=== PATIENT | female | born 1975 | race Two or more races ===

== ENCOUNTER 2023-02-26 13:53 | Inpatient (IN) | payer MEDICAID ==
[~2023-02-26] VITALS: Ht 157.5 cm; Wt 74.8 kg
[2023-02-26] MEDS ORDERED: ACETAMINOPHEN 325 MG TABLET ONE (17:54)
[2023-02-26] MEDS ORDERED: ACETAMINOPHEN 325 MG TABLET PO ONE (18:00)
[2023-02-26 18:39] LABS: BASOPHILS % (AUTO) 0.7 % (0.0-2.0); EOSINOPHILS # (AUTO) 0.1 K/uL (0.0-0.7); EOSINOPHILS % (AUTO) 0.9 % (0.0-6.0); HEMATOCRIT 30 % (33-45); HEMOGLOBIN 9.7 g/dL (11.5-14.8); LYMPHOCYTES # (AUTO) 2.1 K/uL (0.8-4.8); LYMPHOCYTES % (AUTO) 38.2 % (20.0-44.0); MEAN CORPUSCULAR HEMOGLOBIN 25 PG (26.0-33.0); MEAN CORPUSCULAR HGB CONC 32 g/dl (31.0-36.0); MEAN CORPUSCULAR VOLUME 77 fL (82-100); MONOCYTES # (AUTO) 0.5 K/uL (0.1-1.30); MONOCYTES % (AUTO) 8.8 % (2.0-12.0); NEUTROPHILS # (AUTO) 2.8 K/uL (1.8-8.9); NEUTROPHILS % (AUTO) 51.4 % (43.0-81.0); PLATELET COUNT (AUTO) 362 K/uL (150-450); RED BLOOD CELL COUNT(AUTO) 3.94 MIL/uL (4.0-5.2); RED CELL DISTRIBUTION WIDTH 17.4 % (11.5-15.0); WHITE BLOOD COUNT (AUTO) 5.5 K/uL (4.3-11.0)
[2023-02-26 18:49] LABS: CALCIUM, SERUM 9.4 mg/dL (8.5-10.1); CREATININE 0.6 mg/dL (0.6-1.3); POTASSIUM 3.8 mmol/L (3.5-5.1)
[2023-02-26] MEDS ORDERED: VANCOMYCIN 1 GM in IV D5W 250 ML IV ONE (20:30)
[2023-02-26] MEDS ORDERED: PIPERACILLIN /TAZOBACTAM 3.375 G in IV D5W 50 ML IV ONE (20:30)
[2023-02-26] MEDS ORDERED: IV NS 0.9% 1,000 ML IV ONE (20:30)
[2023-02-26] MEDS ORDERED: PIPERACI/TAZO 3.375GM/D5W 50ML PB IV ONE (20:58)
[2023-02-26] MEDS ORDERED: VANCOMYCIN 1 GM /D5W 250 ML PB IV ONE (21:39)
[2023-02-26] MEDS ORDERED: ONDANSETRON HCL/PF 4 MG/2 ML VIAL IVP PRN (22:00)
[2023-02-26] MEDS ORDERED: HYDROCODONE/APAP 5/325MG TABLET PO PRN (22:00)
[2023-02-26] MEDS: ENOXAPARIN SODIUM 40 MG/0.4 ML DISP.SYRIN SQ SCH (22:35)
[2023-02-26 22:57] LABS: IRON, SERUM 16 ug/dl (50-175); TOTAL IRON BINDING CAPACITY 344 ug/dl (250-450)
[2023-02-26 23:09] LABS: FERRITIN 5 ng/mL (8-388)
[2023-02-27] VITALS: BP 120/78; TEMP 97.7; O2SAT 98
[2023-02-27] MEDS ORDERED: ZOSYN IVPB 3.375 G in IV D5W 50ml IV SCH ×2 (03:00→18:00)
[2023-02-27] MEDS ORDERED: PIPERACI/TAZO 3.375GM/D5W 50ML PB IV ONE (03:26)
[2023-02-27] MEDS: ACETAMINOPHEN 325 MG TABLET PO PRN ×2 (03:47→19:49)
[2023-02-27 06:21] LABS: BASOPHILS % (AUTO) 0.7 % (0.0-2.0); EOSINOPHILS # (AUTO) 0.1 K/uL (0.0-0.7); EOSINOPHILS % (AUTO) 1.4 % (0.0-6.0); HEMATOCRIT 28 % (33-45); HEMOGLOBIN 9.2 g/dL (11.5-14.8); LYMPHOCYTES # (AUTO) 1.7 K/uL (0.8-4.8); LYMPHOCYTES % (AUTO) 40.5 % (20.0-44.0); MEAN CORPUSCULAR HEMOGLOBIN 25 PG (26.0-33.0); MEAN CORPUSCULAR HGB CONC 33 g/dl (31.0-36.0); MEAN CORPUSCULAR VOLUME 77 fL (82-100); MONOCYTES # (AUTO) 0.4 K/uL (0.1-1.30); MONOCYTES % (AUTO) 10.6 % (2.0-12.0); NEUTROPHILS # (AUTO) 1.9 K/uL (1.8-8.9); NEUTROPHILS % (AUTO) 46.8 % (43.0-81.0); PLATELET COUNT (AUTO) 323 K/uL (150-450); RED BLOOD CELL COUNT(AUTO) 3.63 MIL/uL (4.0-5.2); RED CELL DISTRIBUTION WIDTH 17.1 % (11.5-15.0); WHITE BLOOD COUNT (AUTO) 4.1 K/uL (4.3-11.0)
[2023-02-27] MEDS ORDERED: VANCOMYCIN 1 GM in IV D5W 250 ML IV SCH ×2 (06:30→15:00)
[2023-02-27 06:57] LABS: CALCIUM, SERUM 8.8 mg/dL (8.5-10.1); CREATININE 0.6 mg/dL (0.6-1.3); MAGNESIUM 1.9 mg/dL (1.8-2.4); POTASSIUM 3.9 mmol/L (3.5-5.1)
[2023-02-27] MEDS: diphenhydrAMINE HCL 50 MG CAPSULE PO PRN (08:40)
[2023-02-27] MEDS ORDERED: BLOOD SUGAR DIAGNOSTIC 1 EACH STRIP IN SCH (09:00)
[2023-02-27] MEDS ORDERED: INSULIN REGULAR, HUMAN 100 UNIT/ML 3 ML VIAL SQ PRN (09:00)
[2023-02-27] MEDS ORDERED: DEXTROSE 50%-WATER 50 ML DISP.SYRIN IV PRN (09:00)
[2023-02-27] MEDS ORDERED: PIPERACILLIN /TAZOBACTAM 3.375 G in IV D5W 100 ML IV SCH (10:00)
[2023-02-27 14:45] LABS: PREGNANCY TEST URINE QUAL NEGATIVE (NEGATIVE)
[2023-02-27] MEDS: SOD FERRIC GLUC 125 MG in IV NS 0.9% 100 ML IV SCH (17:07)
[2023-02-27] MEDS ORDERED: LIDOCAINE 1% INJ 50 ML MDV IJ ONE (17:30)
[2023-02-27] MEDS ORDERED: CELLULOSE,OXIDIZED 1 EACH EACH MC ONE (18:30)
[2023-02-27 20:00] VITALS: BP 111/66; TEMP 98.2; O2SAT 96
[2023-02-27] MEDS: ENOXAPARIN SODIUM 40 MG/0.4 ML DISP.SYRIN SQ SCH ×2 (21:18→21:26)
[2023-02-27] MEDS: DOXYCYCLINE HYCLATE (100 MG) 100 MG TABLET PO SCH (22:29)
[2023-02-28 08:00] VITALS: BP 115/74; TEMP 97.9; O2SAT 98
[2023-02-28] MEDS: DOXYCYCLINE HYCLATE (100 MG) 100 MG TABLET PO SCH ×2 (11:00→21:30)
[2023-02-28] MEDS: SOD FERRIC GLUC 125 MG in IV NS 0.9% 100 ML IV SCH (14:57)
[2023-02-28 16:00] VITALS: BP 123/75; TEMP 98.7; O2SAT 98
[2023-02-28] MEDS: diphenhydrAMINE HCL 50 MG CAPSULE PO PRN (17:36)
[2023-02-28 20:00] VITALS: BP 119/74; TEMP 98.5; O2SAT 98
[2023-02-28] MEDS: ENOXAPARIN SODIUM 40 MG/0.4 ML DISP.SYRIN SQ SCH (22:00)
[2023-03-01 07:00] VITALS: BP 108/71; TEMP 98.7; O2SAT 98
[2023-03-01] MEDS: DOXYCYCLINE HYCLATE (100 MG) 100 MG TABLET PO SCH (09:29)
[2023-03-01 12:00] VITALS: BP 120/74; TEMP 98.4; O2SAT 96
[2023-03-01] MEDS: SOD FERRIC GLUC 125 MG in IV NS 0.9% 100 ML IV SCH (14:17)
[2023-03-01 16:00] VITALS: BP 126/86; TEMP 98.6; O2SAT 99
[2023-03-01] MEDS: BACITRACIN ZINC OINT (15 GM) 15 GM TUBE TP SCH (16:53)
[2023-03-01 20:00] VITALS: BP 134/93; TEMP 98.5; O2SAT 98
[2023-03-01] MEDS: ENOXAPARIN SODIUM 40 MG/0.4 ML DISP.SYRIN SQ SCH (22:00)
[2023-03-01 22:31] VITALS: BP 115/66
[2023-03-02 08:00] VITALS: BP 116/75; TEMP 98.1; O2SAT 100
[2023-03-02] MEDS: BACITRACIN ZINC OINT (15 GM) 15 GM TUBE TP SCH (09:03)
[2023-03-02 13:18] LABS: BASOPHILS % (AUTO) 0.7 % (0.0-2.0); EOSINOPHILS % (AUTO) 0.7 % (0.0-6.0); HEMATOCRIT 30 % (33-45); HEMOGLOBIN 9.7 g/dL (11.5-14.8); LYMPHOCYTES # (AUTO) 1.6 K/uL (0.8-4.8); LYMPHOCYTES % (AUTO) 24.3 % (20.0-44.0); MEAN CORPUSCULAR HEMOGLOBIN 25 PG (26.0-33.0); MEAN CORPUSCULAR HGB CONC 32 g/dl (31.0-36.0); MEAN CORPUSCULAR VOLUME 77 fL (82-100); MONOCYTES # (AUTO) 0.5 K/uL (0.1-1.30); MONOCYTES % (AUTO) 7.1 % (2.0-12.0); NEUTROPHILS # (AUTO) 4.4 K/uL (1.8-8.9); NEUTROPHILS % (AUTO) 67.2 % (43.0-81.0); PLATELET COUNT (AUTO) 351 K/uL (150-450); RED BLOOD CELL COUNT(AUTO) 3.94 MIL/uL (4.0-5.2); RED CELL DISTRIBUTION WIDTH 17.1 % (11.5-15.0); WHITE BLOOD COUNT (AUTO) 6.5 K/uL (4.3-11.0)
[2023-03-02 13:32] LABS: RHEUMATOID FACTOR SCREEN NEGATIVE (NEGATIVE)
[2023-03-02] MEDS: FERROUS SULFATE (325 MG) 325 MG/TAB TABLET PO SCH ×2 (14:00→17:00)
[2023-03-02 14:27] LABS: THYROID STIMULATING HORMONE 0.685 uIU/mL (0.358-3.74)
[2023-03-02 16:00] VITALS: BP 117/77; TEMP 98.8; O2SAT 99
[2023-03-02 20:00] VITALS: BP 125/87; TEMP 97.5; O2SAT 98
[2023-03-02 21:07] LABS: OCCULT BLOOD STOOL NEGATIVE (NEGATIVE)
[2023-03-02] MEDS: HEPARIN SODIUM, PORCINE 5000 UNITS/1 ML VIAL SQ SCH (21:20)
[2023-03-03 06:26] LABS: BASOPHILS % (AUTO) 0.7 % (0.0-2.0); EOSINOPHILS # (AUTO) 0.1 K/uL (0.0-0.7); EOSINOPHILS % (AUTO) 0.8 % (0.0-6.0); HEMATOCRIT 28 % (33-45); HEMOGLOBIN 8.9 g/dL (11.5-14.8); LYMPHOCYTES # (AUTO) 2.2 K/uL (0.8-4.8); LYMPHOCYTES % (AUTO) 32.4 % (20.0-44.0); MEAN CORPUSCULAR HEMOGLOBIN 25 PG (26.0-33.0); MEAN CORPUSCULAR HGB CONC 32 g/dl (31.0-36.0); MEAN CORPUSCULAR VOLUME 77 fL (82-100); MONOCYTES # (AUTO) 0.7 K/uL (0.1-1.30); MONOCYTES % (AUTO) 9.7 % (2.0-12.0); NEUTROPHILS # (AUTO) 3.8 K/uL (1.8-8.9); NEUTROPHILS % (AUTO) 56.4 % (43.0-81.0); PLATELET COUNT (AUTO) 289 K/uL (150-450); RED BLOOD CELL COUNT(AUTO) 3.58 MIL/uL (4.0-5.2); RED CELL DISTRIBUTION WIDTH 17.5 % (11.5-15.0); WHITE BLOOD COUNT (AUTO) 6.8 K/uL (4.3-11.0)
[2023-03-03 07:00] VITALS: BP 125/80; TEMP 98.1; O2SAT 98
[2023-03-03 08:07] LABS: FOLIC ACID 12.5 ng/mL (>3.0)
[2023-03-03] MEDS: HEPARIN SODIUM, PORCINE 5000 UNITS/1 ML VIAL SQ SCH ×2 (08:30→20:48)
[2023-03-03] MEDS: FERROUS SULFATE (325 MG) 325 MG/TAB TABLET PO SCH ×2 (09:00→16:07)
[2023-03-03] MEDS ORDERED: IOHEXOL-300 100 ML VIAL IV ONE (10:49)
[2023-03-03] MEDS ORDERED: CT SWABBABLE VALVE TRANS SET 1 EA INFUS.SET MC ONE (10:49)
[2023-03-03] MEDS ORDERED: IV NS 0.9% 250 ML IV ONE (10:49)
[2023-03-03 11:07] LABS: IMMUNOGLOBULIN A, SERUM 178 mg/dL (87-352); IMMUNOGLOBULIN G, SERUM 1001 mg/dL (586-1602); IMMUNOGLOBULIN M, SERUM 126 mg/dL (26-217)
[2023-03-03] MEDS: BACITRACIN ZINC OINT (15 GM) 15 GM TUBE TP SCH (11:15)
[2023-03-03 12:07] LABS: *ANA ANTI-CENTROMERE B AB <0.2 AI (0.0-0.9); *ANA ANTI-DNA(DS) AB, QN <1 IU/mL (0-9); *ANA ANTI-JO-1 <0.2 AI (0.0-0.9); *ANA ANTICHROMATIN ANTIBODY <0.2 AI (0.0-0.9); *ANA RNP ANTIBODIES <0.2 AI (0.0-0.9); *ANA SJOGREN'S ANTI-SS-A <0.2 AI (0.0-0.9); *ANA SJOGREN'S ANTI-SS-B <0.2 AI (0.0-0.9); *ANAANTI-SCLERODERMA-70 AB <0.2 AI (0.0-0.9); *ANASMITH AB <0.2 AI (0.0-0.9); *SPE A/G RATIO 1.2 (0.7-1.7); *SPE ALBUMIN 3.8 g/dL (2.9-4.4); *SPE ALPHA-1-GLOBULIN 0.3 g/dL (0.0-0.4); *SPE ALPHA-2-GLOBULIN 0.8 g/dL (0.4-1.0); *SPE GLOBULIN, TOTAL 3.1 g/dL (2.2-3.9); *SPE M-SPIKE Not Observed g/dL (Not Observed); *SPE PROTEIN TOTAL 6.9 g/dL (6.0-8.5); *SPEGAMMA GLOBULIN 1.1 g/dL (0.4-1.8)
[2023-03-03 16:00] VITALS: BP 131/67; TEMP 97.3; O2SAT 100
[2023-03-03] MEDS: LEVOFLOXACIN (250MG) 250 MG TABLET PO SCH (16:07)
[2023-03-03 20:00] VITALS: BP 120/72; TEMP 97.7; O2SAT 100; O2SAT 96
[2023-03-04 03:06] LABS: HEPATITIS B SURFACE AB Non Reactive (.)
[2023-03-04 06:34] LABS: BASOPHILS # (AUTO) 0.1 K/uL (0.0-0.2); EOSINOPHILS # (AUTO) 0.1 K/uL (0.0-0.7); EOSINOPHILS % (AUTO) 0.9 % (0.0-6.0); HEMATOCRIT 28 % (33-45); HEMOGLOBIN 9.2 g/dL (11.5-14.8); LYMPHOCYTES # (AUTO) 1.5 K/uL (0.8-4.8); LYMPHOCYTES % (AUTO) 26.6 % (20.0-44.0); MEAN CORPUSCULAR HEMOGLOBIN 25 PG (26.0-33.0); MEAN CORPUSCULAR HGB CONC 33 g/dl (31.0-36.0); MEAN CORPUSCULAR VOLUME 77 fL (82-100); MONOCYTES # (AUTO) 0.6 K/uL (0.1-1.30); MONOCYTES % (AUTO) 11.3 % (2.0-12.0); NEUTROPHILS # (AUTO) 3.5 K/uL (1.8-8.9); NEUTROPHILS % (AUTO) 60.2 % (43.0-81.0); PLATELET COUNT (AUTO) 293 K/uL (150-450); RED BLOOD CELL COUNT(AUTO) 3.65 MIL/uL (4.0-5.2); RED CELL DISTRIBUTION WIDTH 17.3 % (11.5-15.0); WHITE BLOOD COUNT (AUTO) 5.7 K/uL (4.3-11.0)
[2023-03-04 06:36] LABS: ALBUMIN 3.3 g/dL (3.4-5.0); BILIRUBIN,TOTAL 0.3 mg/dL (0.2-1.0); CREATININE 0.5 mg/dL (0.6-1.3); MAGNESIUM 1.8 mg/dL (1.8-2.4); PHOSPHORUS 3.4 mg/dL (2.5-4.9); POTASSIUM 3.9 mmol/L (3.5-5.1); TOTAL PROTEIN, SERUM 6.7 g/dL (6.4-8.2)
[2023-03-04 07:00] VITALS: BP 97/68; TEMP 98.3; O2SAT 100
[2023-03-04] MEDS ORDERED: FERROUS SULFATE (325 MG) 325 MG/TAB TABLET PO SCH (09:00)
[2023-03-04] MEDS ORDERED: LEVO500T90 PO (09:16)
[2023-03-04] MEDS: BACITRACIN ZINC OINT (15 GM) 15 GM TUBE TP SCH (09:44)
[2023-03-04] MEDS: FERROUS SULFATE (325 MG) 325 MG/TAB TABLET PO SCH (09:44)
[2023-03-04] MEDS: HEPARIN SODIUM, PORCINE 5000 UNITS/1 ML VIAL SQ SCH (09:45)
[2023-03-04] MEDS: LEVOFLOXACIN (250MG) 250 MG TABLET PO SCH (13:51)
== END 2023-03-04 14:15 | disposition home health service (06) | DRG 385 ==
LOC: ER 14:05 → MED 20:54
PROVIDERS: ADMIT Nurse Practitioner Acute Care
PROC: 0HBMXZX Excision of Right Foot Skin, External Approach, Diagnostic (ICD-10-PCS; principal; 2023-02-27)
DX: D23.71 Other benign neoplasm of skin of right lower limb, including hip (principal); D61.818 Other pancytopenia; D68.59 Other primary thrombophilia; I96 Gangrene, not elsewhere classified; L85.9 Epidermal thickening, unspecified; D50.9 Iron deficiency anemia, unspecified; E66.9 Obesity, unspecified; Z68.30 Body mass index [BMI] 30.0-30.9, adult; Z80.8 Family history of malignant neoplasm of other organs or systems
CPT/HCPCS: 36415; 71260-TC; 73630-TC; 73718-TC; 80048-TC; 80053-TC; 80061-TC; 80202-TC; 82272-TC; 82607-TC; 82728-TC; 82784; 83540-TC; 83615-TC; 83735-TC; 84100-TC; 84155; 84165; 84443-TC; 84703-TC; 85025-TC; 86225; 86235; 86334; 86431-TC; 86706; 86803; 87040-TC; 87340; A4223; A6403; G0378; J1644; J1650; J1815; J2543; J2916; J3370; J3490; J7030; J7050; J7060; Q0163; Q9967